=== PATIENT | male | born 1955 | race American Indian/Alaskan Native ===

== ENCOUNTER 2017-03-08 12:06 | Emergency (ER) | payer MEDICAID ==
[2017-03-08 13:52] VITALS: BP 104/59
[2017-03-08 14:22] LABS: Basophils % (Auto) 0.4 % (0.0-1.8); Eosinophils # (Auto) 0.1 K/mm3 (0.0-0.4); Eosinophils % (Auto) 1.3 % (0.0-4.3); Hematocrit 27.6 % (35.5-45.6); Hemoglobin 9.5 gm/dl (11.8-15.2); Lymphocytes # (Auto) 2.2 K/mm3 (1.2-5.4); Lymphocytes % (Auto) 22.1 % (13.4-35.0); Mean Corpuscular HGB Conc 34 % (32-34); Mean Corpuscular Hemoglobin 31 pg (28-32); Mean Corpuscular Volume 91 fl (84-94); Monocytes # (Auto) 1.1 K/mm3 (0.0-0.8); Monocytes % (Auto) 11.3 % (0.0-7.3); Platelet Count 454 K/mm3 (140-440); Red Blood Count 3.03 M/mm3 (3.65-5.03); Red Cell Distribution Width 14.1 % (13.2-15.2)
[2017-03-08 14:38] LABS: Calcium 8.8 mg/dL (8.4-10.2)
--- NOTE | 2017-03-08 16:25 | Emergency Department Report ---
ED Medical Clearance HPI - General Chief complaint: Medical Clearance Stated complaint: MEDICAL CLEARANCE Time Seen by Provider: 03/08/17 16:17 Source: patient Mode of arrival: Ambulatory - History of Present Illness Initial comments: Patient is 61 years old male with past medical history of hypertension and diabetes and GERD. Presented to the ER today stating that he wanted to check his sodium and his blood pressure. Patient stated that he was recently admitted to [place] for low sodium and he is went to make sure that his sodium is okay. Patient currently denying any symptoms, specifically no dizziness, no shortness of breath, no chest pain. Patient denied any nausea or vomiting. No fever. Allergies/Adverse reactions: Allergies Allergy/AdvReac Type Severity Reaction Status Date / Time No Known Allergies Allergy Verified 03/08/17 13:46 ED Review of Systems ROS: Stated complaint: MEDICAL CLEARANCE Other details as noted in HPI Comment: All other systems reviewed and negative Constitutional: denies: chills, fever Respiratory: denies: cough, shortness of breath, SOB with exertion Cardiovascular: denies: chest pain, palpitations, dyspnea on exertion Gastrointestinal: denies: abdominal pain, nausea, vomiting, diarrhea Genitourinary: denies: urgency, dysuria, frequency, hematuria Skin: denies: rash Neurological: denies: headache, weakness, numbness, paresthesias, confusion, abnormal gait, vertigo ED Past Medical Hx - Past Medical History Hx Hypertension: Yes Hx Diabetes: Yes - Surgical History Past Surgical History?: No - Social History Smoking Status: Unknown if ever smoked Substance Use Type: None ED Physical Exam - General Limitations: No Limitations General appearance: alert, in no apparent distress - Head Head exam: Present: atraumatic, normocephalic, normal inspection - Eye Eye exam: Present: normal appearance, PERRL - ENT ENT exam: Present: normal exam, normal orophraynx, mucous membranes moist - Neck Neck exam: Present: normal inspection, full ROM. Absent: tenderness, meningismus, lymphadenopathy - Respiratory Respiratory exam: Present: normal lung sounds bilaterally. Absent: respiratory distress, wheezes, rales, rhonchi, stridor, chest wall tenderness, accessory muscle use, decreased breath sounds, prolonged expiratory - Cardiovascular Cardiovascular Exam: Present: regular rate, normal rhythm, normal heart sounds - GI/Abdominal GI/Abdominal exam: Present: soft, normal bowel sounds. Absent: distended, tenderness, guarding, rebound, rigid, organomegaly, mass, bruit, pulsatile mass , hernia - Extremities Exam Extremities exam: Present: normal inspection, full ROM, normal capillary refill. Absent: pedal edema, calf tenderness - Back Exam Back exam: Present: normal inspection. Absent: CVA tenderness (R), CVA tenderness (L), paraspinal tenderness, vertebral tenderness - Neurological Exam Neurological exam: Present: alert, oriented X3, CN II-XII intact, normal gait, reflexes normal. Absent: abnormal gait, motor sensory deficit - Psychiatric Psychiatric exam: Absent: depressed - Skin Skin exam: Present: warm, intact, normal color ED Course Vital Signs 03/08/17 03/08/17 13:47 13:53 Temperature 97.6 F 97.6 F Pulse Rate 70 70 Respiratory 20 20 Rate Blood Pressure 104/59 Blood Pressure 104/59 [Right] O2 Sat by Pulse 100 100 Oximetry ED Medical Decision Making - Lab Data Result diagrams: 03/08/17 14:11 03/08/17 14:11 - Medical Decision Making Patient is completely asymptomatic. His sodium level is 125. Patient does not need IV fluids. I advised patient to increase his salt intake and to follow-up with his primary care physician. ED Disposition Clinical Impression: Hyponatremia Disposition: DC-01 TO HOME OR SELFCARE Is pt being admited?: No Condition: Stable Instructions: Hyponatremia (ED) Referrals: PRIMARY CARE, [Primary Care Provider] - 3-5 Days
== END 2017-03-08 17:33 | disposition home or self-care (01) ==
LOC: ED 12:06
DX: E87.1 Hypo-osmolality and hyponatremia (principal); I10 Essential (primary) hypertension; E11.9 Type 2 diabetes mellitus without complications
CPT/HCPCS: 36415; 80048; 85025; 99283

== ENCOUNTER 2017-03-29 21:36 | Emergency (ER) | payer MEDICAID ==
[2017-03-29 22:55] VITALS: BP 131/83
[2017-03-29 23:46] LABS: Basophils % (Auto) 0.3 % (0.0-1.8); Eosinophils # (Auto) 0.2 K/mm3 (0.0-0.4); Eosinophils % (Auto) 1.6 % (0.0-4.3); Hematocrit 26.1 % (35.5-45.6); Hemoglobin 8.8 gm/dl (11.8-15.2); Lymphocytes # (Auto) 1.2 K/mm3 (1.2-5.4); Mean Corpuscular HGB Conc 34 % (32-34); Mean Corpuscular Hemoglobin 30 pg (28-32); Mean Corpuscular Volume 90 fl (84-94); Monocytes % (Auto) 9.4 % (0.0-7.3); Platelet Count 433 K/mm3 (140-440); Red Cell Distribution Width 14.8 % (13.2-15.2)
[2017-03-29 23:54] LABS: INR 0.99 (0.87-1.13)
[2017-03-30 00:14] LABS: Alanine Aminotransferase 7 units/L (7-56); BUN/Creatinine Ratio 17; Blood Urea Nitrogen 20 mg/dL (9-20); Calcium 9.3 mg/dL (8.4-10.2); Hemolysis Index 5
[2017-03-30 04:07] LABS: Bacteria,Urine 2+ /HPF (Negative); Bilirubin,Urine NEG (Negative); Blood,Urine SM (Negative); Color,Urine Yellow (Yellow); Nitrite,Urine POS (Negative); Protein,Urine <15 mg/dL mg/dL (Negative); Urobilinogen,Urine < 2.0 mg/dL (<2.0)
[2017-03-30 04:10] LABS: WBC,Urine > 182.0 /HPF (0.0-6.0)
[2017-03-30] MEDS ORDERED: KIONEX PO ONE (10:15)
[2017-03-30] MEDS ORDERED: BACTRIM DS PO ONE (10:15)
--- NOTE | 2017-03-30 10:20 | Emergency Department Report ---
HPI - General Chief Complaint: Wound/Laceration Time Seen by Provider: 03/30/17 10:05 - HPI HPI: This is a 61-year-old male presents to the emergency department from his rehabilitation facility, where he is being seen for substance abuse, with complaint of a painful blister or lesion to the ball of the right foot near the great toe. This has been going on for weeks but lately it has become very tender and he has trouble walking on it secondary to pain. He has not taken anything for her symptoms prior to presentation. He says he has a primary care physician "in [place]" but it is not near the rehabilitation facility and therefore has not seen anybody regarding his symptoms. He has not taken anything for this. He has a past medical history of diabetes and hypertension. He denies any fever, redness, swelling. Patient also says that he has been having some burning with urination and some intermittent difficulty urinating. ED Past Medical Hx - Past Medical History Hx Hypertension: Yes Hx Diabetes: Yes - Social History Smoking Status: Never Smoker Substance Use Type: None - Medications Home Medications: Home Medications Medication Instructions Recorded Confirmed Last Taken Type Sodium Chloride 1 gm PO BID #10 tablet 03/08/17 Unknown Rx Sulfamethoxazole/Trimethoprim 1 each PO BID #14 tablet 03/30/17 Unknown Rx [Bactrim DS TAB] ED Review of Systems ROS: Stated complaint: DIABETIC,RIGHT TOE PAIN Other details as noted in HPI Comment: All other systems reviewed and negative Constitutional: denies: chills, fever Eyes: denies: eye pain, eye discharge, vision change ENT: denies: ear pain, throat pain Respiratory: denies: cough, shortness of breath, wheezing Cardiovascular: denies: chest pain, palpitations Gastrointestinal: denies: abdominal pain, nausea, diarrhea Genitourinary: denies: urgency, dysuria Musculoskeletal: arthralgia. denies: back pain Skin: other (blister on foot). denies: rash Neurological: denies: headache, weakness, paresthesias Physical Exam - Physical Exam Vital Signs: Vital Signs 03/29/17 22:52 Temperature 97.5 F L Pulse Rate 94 H Respiratory 18 Rate Blood Pressure 131/83 O2 Sat by Pulse 99 Oximetry Physical Exam: GENERAL: The patient is well-developed well-nourished. HENT: Normocephalic. Atraumatic. Patient has moist mucous membranes. EYES: Extraocular motions are intact. Pupils equal reactive to light bilaterally. NECK: Supple. Trachea is midline. CHEST/LUNGS: Clear to auscultation. There is no respiratory distress noted. HEART/CARDIOVASCULAR: Regular. There is no tachycardia. There is no murmur. ABDOMEN: Abdomen is soft, nontender. Patient has normal bowel sounds. There is no abdominal distention. SKIN: Skin is warm and dry. There is a very hard but tender blister to the right plantar foot on the ball of the foot at the base of the great toe. No surrounding erythema, warmth. No purulent drainage or bleeding. He has onychomycosis of the toenails. NEURO: The patient is awake, alert, and oriented. The patient is cooperative. The patient has no focal neurologic deficits. The patient has normal speech. MUSCULOSKELETAL: Is tenderness to palpation to the right great toe and foot where the patient has a blister. There is no limitation range of motion. ED Course Vital Signs 03/29/17 22:52 Temperature 97.5 F L Pulse Rate 94 H Respiratory 18 Rate Blood Pressure 131/83 O2 Sat by Pulse 99 Oximetry ED Medical Decision Making - Lab Data Result diagrams: 03/29/17 23:07 03/29/17 23:07 - Radiology Data Radiology results: image reviewed interpreted by me: X-ray of the right foot does not show any fracture, dislocation, foreign body or any acute process. - Medical Decision Making Patient presents with a main complaint of a painful lesion or blister to the right foot. It is not tender surrounding this area and does appear consistent with a blister. There is no fluctuance or drainage. X-ray does not show any fracture, dislocation, foreign body. He will be placed on some crutches to help with weight bearing as it is tender and he will be given a referral for podiatry. As he is currently being treated for substance abuse history he will not be placed on any narcotic pain medication but can take Tylenol and/or ibuprofen as necessary. His labs show hyperkalemia with a potassium of 5.4 so he was given a small amount of Kayexalate which should bring him down to a reasonable level with his next bowel movement. Patient also complains of some dysuria and intermittent difficulty urinating. He does not appear distended or having urinary retention but he has a significant urinary tract infection which could be source of his issues. He will be started on antibiotics and has been given a referral for urology. I gave him an antibiotic that would work for both a UTI as well as for his foot if it is some type of developing infection. We discussed returning to the emergency Department with any signs or symptoms of infection or any development of fever. - Differential Diagnosis blister, abscess, UTI, bladder spasm, fracture Critical Care Time: No Critical care attestation.: If time is entered above; I have spent that time in minutes in the direct care of this critically ill patient, excluding procedure time. ED Disposition Clinical Impression: Hyperkalemia, Right foot pain Blister of foot, right Qualifiers: Encounter type: initial encounter Qualified Code(s): S90.821A - Blister ( nonthermal), right foot, initial encounter UTI (urinary tract infection) Qualifiers: Urinary tract infection type: acute cystitis Hematuria presence: without hematuria Qualified Code(s): N30.00 - Acute cystitis without hematuria Anemia Qualifiers: Anemia type: unspecified type Qualified Code(s): D64.9 - Anemia, unspecified Disposition: DC- TO HOME OR SELFCARE Is pt being admited?: No Condition: Stable Instructions: Urinary Tract Infection in Men (ED), Arthralgia (ED), Anemia (ED) , Blister (ED) Additional Instructions: Please follow up with a primary care physician as soon as possible. I have given you a referral for a local urologist, Dr. Marinelli, to follow up regarding your urinary tract infection. I have given you a referral for a local beck tender/foot doctor, Dr. Weller, to follow up regarding your foot pain and/ or blister and for a general examination since you are diabetic. Return to the emergency Department with any worsening of your symptoms, development of fever, signs or symptoms of infection of the foot including surrounding redness or discharge of pus, or with any concerns or acute distress. Prescriptions: Sulfamethoxazole/Trimethoprim [Bactrim DS TAB] 1 each PO BID #14 tablet Referrals: RO BETH MD [Primary Care Provider] - 3-5 Days MYRON MARINELLI MD [Staff Physician] - 3-5 Days CHAY WELLER MD [Staff Physician] - 3-5 Days [facility] [Outside] - 3-5 Days Time of Disposition: 10:50
--- NOTE | 2017-03-30 10:48 | XRay Report ---
RIGHT FOOT, 3 views: History: Right foot pain. Borderline to mild osteopenia. No evidence for acute injury or erosive joint pathology. There is mild soft tissue swelling lateral to the fifth metatarsal base. No underlying fracture or bony abnormality is appreciated. IMPRESSION: Nonspecific lateral soft tissue swelling. No acute process noted.
== END 2017-03-30 12:05 | disposition home or self-care (01) ==
LOC: ED 21:36
DX: S90.821A Blister (nonthermal), right foot, initial encounter (principal); E87.5 Hyperkalemia; D64.9 Anemia, unspecified; N39.0 Urinary tract infection, site not specified; I10 Essential (primary) hypertension; E11.9 Type 2 diabetes mellitus without complications; X58.XXXA Exposure to other specified factors, initial encounter; Y93.89 Activity, other specified; Y92.89 Other specified places as the place of occurrence of the external cause; Y99.8 Other external cause status
CPT/HCPCS: 36415; 80053; 81001; 82140; 82805; 82962; 85025; 85610; 87086; 99284